=== PATIENT | female | born 2000 ===

== ENCOUNTER → 2020-08-06 | Outpatient (CLI) | payer OTHER ==
[~2020-08-06] MED LIST: DOCU100 PO; IBUP400 PO; Percocet 5-3251 EACH PO
[2020-08-06 15:46] LABS: BASOPHILS ABSOLUTE AUTO 0.03 K/mm3 (0.00-0.23); BASOPHILS PERCENT AUTO 0 % (0-2); EOSINOPHILS ABSOLUTE AUTO 0.13 K/mm3 (0.00-0.68); EOSINOPHILS PERCENT AUTO 2 % (0-6); Hematocrit 31.4 % (33.0-51.0); Hemoglobin 9.6 g/dL (11.5-16.0); IMMATURE GRAN ABSOLUTE AUTO 0.04 K/mm3 (0.00-0.10); IMMATURE GRAN PERCENT AUTO 1 % (0-1); LYMPHOCYTES ABSOLUTE AUTO 1.27 K/mm3 (0.84-5.20); LYMPHOCYTES PERCENT AUTO 16 % (21-46); MONOCYTES ABSOLUTE AUTO 0.49 K/mm3 (0.16-1.47); MONOCYTES PERCENT AUTO 6 % (4-13); Mean Corpuscular HGB 19.8 pg (26.0-34.0); Mean Corpuscular HGB Conc 30.6 g/dL (31.5-36.5); Mean Corpuscular Volume 65 fL (80-100); NEUTROPHILS ABSOLUTE AUTO 6.15 K/mm3 (1.96-9.15); NEUTROPHILS PERCENT AUTO 76 % (41-73); Platelet Count 247 K/mm3 (150-400); RDW Coefficient Variation 20.7 % (11.7-14.2); Red Blood Cell Count 4.84 M/mm3 (3.80-5.20); White Blood Cell Count 8.11 K/mm3 (4.00-11.30)
[2020-08-06 15:53] LABS: Alanine Aminotransfer (ALT/SGP 20 U/L (12-78); Albumin, Blood 3.9 g/dL (3.4-5.0); Albumin/Globulin Ratio 0.8 (0.8-1.8); Alk Phos 84 U/L (40-126); Anion Gap 7 mmol/L (6-16); Aspartate Aminotrans (AST/SGOT 18 U/L (12-37); Bilirubin, Total 0.2 mg/dL (0.1-1.0); Blood Urea Nitrogen 17 mg/dL (8-24); Bun/Creatinine Ratio 19.3 (12.0-20.0); CO2, Blood 28 mmol/L (21-32); Calcium, Blood 8.9 mg/dL (8.5-10.1); Chloride, Blood 101 mmol/L (98-108); Creatinine, Blood 0.88 mg/dL (0.40-1.00); Globulin, Blood 4.7 g/dL (2.2-4.0); Glomerular Filtration Rate >60 (60-); Glucose, Blood 92 mg/dL (70-99); Sodium, Blood 136 mmol/L (136-145); Total Protein, Blood 8.6 g/dL (6.4-8.2)
== END | disposition home or self-care (01) ==
LOC: LAB SHORT 15:39 → LAB EV 15:39
PROVIDERS: Physician Assistant Medical
DX: R10.9 Unspecified abdominal pain (principal)
CPT/HCPCS: 80053; 85025

== ENCOUNTER 2020-08-08 09:28 | Observation (INO) | payer OTHER ==
[~2020-08-08] VITALS: Ht 167.6 cm; Wt 74.4 kg
[~2020-08-08 09:28] MED LIST changes: -DOCU100 PO; -IBUP400 PO
[2020-08-08 11:06] LABS: Source, Urine Voided
[2020-08-08 11:23] LABS: Bilirubin, Urine Neg (Neg); Blood, Urine 4+ (Neg); Glucose Qualitative, Urine Neg (Neg); Ketones, Urine Neg (Neg); Leukocyte Esterase, Urine Neg (Neg); Nitrite, Urine Neg (Neg); Protein, Urine Neg (Neg); Urobilinogen, Urine NORM (Normal)
[2020-08-08 11:36] LABS: Appearance, Urine Clear (Clear); Bacteria Not Seen /hpf; Color, Urine Yellow (P-Yellow); Squamous Epithelial Cells Rare /hpf (Few); White Blood Cells, Urine Not Seen /hpf (0-5)
[2020-08-08 11:44] LABS: BASOPHILS ABSOLUTE AUTO 0.02 K/mm3 (0.00-0.23); BASOPHILS PERCENT AUTO 0 % (0-2); EOSINOPHILS ABSOLUTE AUTO 0.16 K/mm3 (0.00-0.68); EOSINOPHILS PERCENT AUTO 3 % (0-6); Hematocrit 32.2 % (33.0-51.0); Hemoglobin 9.5 g/dL (11.5-16.0); IMMATURE GRAN ABSOLUTE AUTO 0.01 K/mm3 (0.00-0.10); IMMATURE GRAN PERCENT AUTO 0 % (0-1); LYMPHOCYTES ABSOLUTE AUTO 1.97 K/mm3 (0.84-5.20); LYMPHOCYTES PERCENT AUTO 31 % (21-46); MONOCYTES ABSOLUTE AUTO 0.46 K/mm3 (0.16-1.47); MONOCYTES PERCENT AUTO 7 % (4-13); Mean Corpuscular HGB 19.7 pg (26.0-34.0); Mean Corpuscular HGB Conc 29.5 g/dL (31.5-36.5); Mean Corpuscular Volume 67 fL (80-100); NEUTROPHILS ABSOLUTE AUTO 3.74 K/mm3 (1.96-9.15); NEUTROPHILS PERCENT AUTO 59 % (41-73); RDW Coefficient Variation 20.7 % (11.7-14.2); RDW Standard Deviation 48.4 fL (35.1-46.3); Red Blood Cell Count 4.82 M/mm3 (3.80-5.20); White Blood Cell Count 6.36 K/mm3 (4.00-11.30)
[2020-08-08 12:02] LABS: Platelet Count 177 K/mm3 (150-400)
--- NOTE | 2020-08-08 15:39 | NUR ---
ADMISSION: REPORT RECEIVED FROM ED RN. PT TO UNIT AT ABOUT 1320. UPON ASSESSMENT PT IS IN NO VISABLE DISTRESS. A/O, AMBULATORY TO BED. REPORTS TENDERNESS AT ABD. DR. PALMER IN ROOM AT THIS TIME ASWELL. BLOOD CONSENT SIGNED AND PREOP EDUCATION GIVEN.
--- NOTE | 2020-08-08 17:54 | NUR ---
SUMMARY: NO ACUTE CHANGE SINCE ADMIT. PT HAS BEEN RESTING. A/O, INDEP IN ROOM MEDICATED X1 FOR PAIN. DAY SURGERY TO ANALYTICAL DATA MINER PT SOON FOR SURGERY. VSS, NO SAFETY CONCERNS AT THIS TIME.
--- NOTE | 2020-08-08 18:41 | NUR ---
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
--- NOTE | 2020-08-08 19:19 | NUR ---
08/08/201918 Jered Demarco NO PREOP ANTIBIOTICS ORDERED
--- NOTE | 2020-08-08 21:45 | NUR ---
PT ARRIVED TO ROOM 232 FROM ICU RECOVERY. PT ALERT, REPORTS MILD DIZZIENSS WHEN UP. PT REP FEELS LIKE SHE NEEDS TO URINATE, ASSISTED INTO BATHROOM. PT UANBLE TO VOID AT THIS TIME, IS C/O BURNING SENSATION TO VAGINA. PT IS HAVING SMALL AMT RED VAGINAL BLEEDING; BOBBY PAD AND PANTIES PROVIDED. INCISIONS CDI, ABD SOFT TO PALP. PT DENIES N/V, IS C/O ABD PAIN. PLAN TO REVIEW ORDERS AND MEDICATE PRN. PT ORIENTED TO ROOM/CALL LIGHT. SISTER IN ROOM W/PLAN TO GO HOME AFTER PT SETTLED IN.
--- NOTE | 2020-08-09 05:57 | NUR ---
POD 1 S/P EXP LAP W/RIGHT OVARY AND TUBE REMOVAL. PT VSS. INCISIONS CDI. PT IS HAVING SMALL AMT VAGINAL BLEEDING, BOBBY PAD CHANGED X1 THIS SHIFT. PT JYOTI SM AMT PO, NO C/O N/V, REP NO FLATUS YET. BLADDER SCAN DONE THIS AM READING 463, PT VOIDED 400ML, DENIED PAIN/BURNING W/VOID. PT UP OOB W/SBA, REP DIZZINESS RESOLVED THIS AM. PAIN MGD PER EMAR, IVF S/L THIS AM. PLAN TO D/C HOME TODAY.
[2020-08-09] MEDS ORDERED: DOCU100 PO (07:55)
[2020-08-09] MEDS ORDERED: IBUP400 PO (07:56)
[2020-08-09] MEDS ORDERED: Percocet 5-3251 EACH PO (07:57)
--- NOTE | 2020-08-09 09:48 | NUR ---
DISCHARGE NOTE: PATIENT HAS BEEN EDUCATED ON DISCHARGE INSTRUCTIONS. SHE HAS NO QUESTIONS OR CONCERNS AT THIS TIME. SHE IS ALERT AND ORIENTATED X4. HER VITALS ARE WITHIN NORMAL LIMITS AND SHE IS ON ROOM AIR. HER PAIN IS MANAGED WITH PERCOCET AND TYLENOL. SHE HAS THOSE PERSCRIPTIONS ON HER DISCHARGE PACKET. SHE HAS BEEN ABLE TO PASS GAS AND VOID. SHE WAS ABLE TO EAT HER BREAKFAST WITH OUT HAVING NAUSEA. SHE HAS SOME PADS WITH HER TO CATCH ANY DISCHARGE. SHE WILL BE WALKING OUT WITH HER SISTER AND TAKEN HOME. SHE HAS BEEN PLEASANT TO WORK WITH.
== END 2020-08-09 09:58 | disposition home or self-care (01) ==
LOC: ER 09:28 → SURS 09:29 → ICUE 20:15 → SURS 21:14
PROVIDERS: Emergency Medicine; ADMIT Obstetrics & Gynecology
PROC: 0UB54ZZ Excision of Right Fallopian Tube, Percutaneous Endoscopic Approach (ICD-10-PCS; principal; 2020-08-08 19:30)
PROC: 0UB04ZZ Excision of Right Ovary, Percutaneous Endoscopic Approach (ICD-10-PCS; principal; 2020-08-08 19:30)
DX: N83.8 Other noninflammatory disorders of ovary, fallopian tube and broad ligament (principal); Z20.828 Contact with and (suspected) exposure to other viral communicable diseases
CPT/HCPCS: 36415; 81001; 84702; 85025; 86850; 86900; 86901; A9270; J1100; J1170; J1885; J2250; J2405; J2704; J3010; J7030; J7120; Q2038; U0003

== ENCOUNTER 2020-09-17 19:09 | Emergency (ER) | payer OTHER ==
[~2020-09-17] VITALS: Ht 167.6 cm; Wt 72.6 kg
[~2020-09-17 19:09] MED LIST changes: +DOCU100 PO; +IBUP400 PO
[2020-09-17 22:11] LABS: Source, Urine Clean Catch
[2020-09-17 22:14] LABS: Bilirubin, Urine Neg (Neg); Blood, Urine Neg (Neg); Glucose Qualitative, Urine Neg (Neg); Ketones, Urine Neg (Neg); Leukocyte Esterase, Urine Neg (Neg); Nitrite, Urine Neg (Neg); Protein, Urine Neg (Neg); Specific Gravity, Urine 1.015 (1.003-1.022); Urobilinogen, Urine NORM (Normal)
[2020-09-17 22:16] LABS: BASOPHILS ABSOLUTE AUTO 0.04 K/mm3 (0.00-0.23); BASOPHILS PERCENT AUTO 1 % (0-2); EOSINOPHILS ABSOLUTE AUTO 0.17 K/mm3 (0.00-0.68); EOSINOPHILS PERCENT AUTO 2 % (0-6); Hemoglobin 10.4 g/dL (11.5-16.0); IMMATURE GRAN ABSOLUTE AUTO 0.02 K/mm3 (0.00-0.10); IMMATURE GRAN PERCENT AUTO 0 % (0-1); LYMPHOCYTES ABSOLUTE AUTO 2.33 K/mm3 (0.84-5.20); LYMPHOCYTES PERCENT AUTO 28 % (21-46); MONOCYTES ABSOLUTE AUTO 0.57 K/mm3 (0.16-1.47); MONOCYTES PERCENT AUTO 7 % (4-13); Mean Corpuscular HGB Conc 29.7 g/dL (31.5-36.5); Mean Corpuscular Volume 67 fL (80-100); NEUTROPHILS ABSOLUTE AUTO 5.23 K/mm3 (1.96-9.15); NEUTROPHILS PERCENT AUTO 63 % (41-73); Platelet Count 225 K/mm3 (150-400); RDW Coefficient Variation 19.9 % (11.7-14.2); RDW Standard Deviation 47.8 fL (35.1-46.3); Red Blood Cell Count 5.19 M/mm3 (3.80-5.20); White Blood Cell Count 8.36 K/mm3 (4.00-11.30)
[2020-09-17 22:19] LABS: Color, Urine Yellow (P-Yellow)
[2020-09-17 22:21] LABS: Amorphous Mod (0-Heavy); Appearance, Urine Hazy (Clear); Bacteria Few /hpf; Red Blood Cells, Urine Not Seen /hpf (0-2); Squamous Epithelial Cells Mod /hpf (Few); White Blood Cells, Urine Not Seen /hpf (0-5)
[2020-09-17 22:31] LABS: Alanine Aminotransfer (ALT/SGP 20 U/L (12-78); Albumin/Globulin Ratio 0.9 (0.8-1.8); Alk Phos 99 U/L (50-136); Anion Gap 6 mmol/L (6-16); Aspartate Aminotrans (AST/SGOT 19 U/L (12-37); Bilirubin, Total 0.2 mg/dL (0.1-1.0); Blood Urea Nitrogen 20 mg/dL (8-24); Bun/Creatinine Ratio 24.1 (12.0-20.0); CO2, Blood 27 mmol/L (21-32); CPK Creatine Kinase 76 U/L (26-193); Calcium, Blood 9.2 mg/dL (8.5-10.1); Chloride, Blood 108 mmol/L (98-108); Creatinine, Blood 0.83 mg/dL (0.40-1.00); Globulin, Blood 4.5 g/dL (2.2-4.0); Glomerular Filtration Rate >60 (60-); Glucose, Blood 88 mg/dL (70-99); Potassium, Blood 3.6 mmol/L (3.5-5.5); Sodium, Blood 141 mmol/L (136-145); Total Protein, Blood 8.5 g/dL (6.4-8.2)
== END 2020-09-18 00:36 | disposition home or self-care (01) ==
LOC: ER 19:09
PROVIDERS: Emergency Medicine
DX: M79.18 Myalgia, other site (principal); M79.651 Pain in right thigh; M79.652 Pain in left thigh; Z79.899 Other long term (current) drug therapy
CPT/HCPCS: 36415; 80053; 81001; 82550; 84703; 85025; 96361; 96374; 99283-25; J1885; J7030

== ENCOUNTER 2020-12-02 17:37 | Emergency (ER) | payer OTHER ==
[~2020-12-02] VITALS: Ht 167.6 cm; Wt 74.8 kg
[2020-12-02] MEDS ORDERED: Amoxicillin500 MG PO (18:33)
[2020-12-02] MEDS ORDERED: AMOCLA875 PO (18:35)
== END 2020-12-02 18:47 | disposition home or self-care (01) ==
LOC: ER 17:37
DX: H66.91 Otitis media, unspecified, right ear (principal); H92.02 Otalgia, left ear
CPT/HCPCS: 99283